=== PATIENT | male | born 1965 | race Caucasian/White ===

== ENCOUNTER 2018-07-28 11:30 | Inpatient (IN) | payer OTHER ==
[~2018-07-28 11:30] MED LIST: CIPRO750 MG PO; CLONAZEPAM1 MG PO; DOCUSATE SODIU100 MG PO; METHYLPRED4 MG/DOSE- PO; NEURONTIN PO; PERCOCET 5/3251 TAB PO
[2018-07-28] MEDS ORDERED: SYNTHROID112 MCG (12:23)
[2018-07-28] MEDS ORDERED: RELAFEN (12:23)
[2018-07-28] MEDS ORDERED: NEURONTIN (12:23)
[2018-07-28] MEDS ORDERED: VITAMINA D (12:24)
[2018-07-28] MEDS ORDERED: OMEGA 3-6-9 11200 M1 (12:24)
[2018-07-28] MEDS ORDERED: WELLBUTRIN SR100 MG (12:24)
[2018-08-03] MEDS ORDERED: COLACE100 MG PO (17:49)
[2018-08-03] MEDS ORDERED: NEURONTIN800 MG PO (17:50)
[2018-08-03] MEDS ORDERED: AMOX-CLAV 875-1 EACH PO (17:51)
[2018-08-03] MEDS ORDERED: MEDROLPACK PO (17:51)
[2018-08-03] MEDS ORDERED: CLONAZEPAM0.5 MG PO (17:52)
[2018-08-03] MEDS ORDERED: PERCOCET 5-3251 EACH PO (17:52)
== END 2018-08-04 14:00 | disposition home or self-care (01) | DRG 455 ==
LOC: SURH 08-02 11:30 → O/R 08-03 05:45 → SURH 08-03 11:30 → O/R 08-04 14:00
PROVIDERS: ADMIT Orthopaedic Surgery Orthopaedic Surgery of the Spine
PROC: 0SG3071 Fusion of Lumbosacral Joint with Autologous Tissue Substitute, Posterior Approach, Posterior Column, Open Approach (ICD-10-PCS; 2018-08-03)
PROC: 0ST40ZZ Resection of Lumbosacral Disc, Open Approach (ICD-10-PCS; 2018-08-03)
PROC: 00NY0ZZ Release Lumbar Spinal Cord, Open Approach (ICD-10-PCS; 2018-08-03)
PROC: 01NR0ZZ Release Sacral Nerve, Open Approach (ICD-10-PCS; 2018-08-03)
PROC: 3E0U0GB Introduction of Recombinant Bone Morphogenetic Protein into Joints, Open Approach (ICD-10-PCS; 2018-08-03)
PROC: 0SG30AJ Fusion of Lumbosacral Joint with Interbody Fusion Device, Posterior Approach, Anterior Column, Open Approach (ICD-10-PCS; principal; 2018-08-03 03:45)
DX: M96.0 Pseudarthrosis after fusion or arthrodesis (principal); M54.16 Radiculopathy, lumbar region; M51.37 Other intervertebral disc degeneration, lumbosacral region; E03.8 Other specified hypothyroidism